=== PATIENT | female | born 1940 | race Caucasian/White ===

== ENCOUNTER → 2017-01-02 | Outpatient (CLI) | payer MEDICARE, BC ==
--- NOTE | 2017-01-02 16:41 | MR ---
EXAMINATION TYPE: MR lumbar spine wo con DATE OF EXAM: 01/02/2017 COMPARISON: NONE HISTORY: lLow back pain CONTRAST: 0 mL intravenous Gadavist. TECHNIQUE: Multiplanar, multisequence images of the lumbar spine were acquired. FINDINGS: L5-S1: There is a left paracentral disc herniation with moderate anterior thecal sac compression. No spinal canal stenosis present. Facet hypertrophy and ligamentum flavum laxity is present. Foramen are patent. L4-L5: There is a grade 1 spondylolisthesis with L4 anterior to L5. Disc uncovering is present with m oderate anterior thecal sac compression. Facet hypertrophy with posterior lateral thecal sac compress ion is present. This is contributing to very severe spinal canal. L3-L4: Broad-based disc bulge is present with anterior thecal sac contact. Facet hypertrophy is poste rior lateral thecal sac compression. No spinal canal stenosis is present. Neural foramen are patent. L2-L3: Disc bulge has mild anterior thecal sac contact. No AP spinal canal stenosis present. Facet hy pertrophy with posterior lateral thecal sac compression is present. L1-L2: Minimal disc bulge is present with anterior thecal sac contact. No spinal canal stenosis or ne ural foraminal stenosis present. Mild facet hypertrophy is present with mild right posterior lateral thecal sac compression. T12-L1: Right paracentral disc bulge has moderate anterior thecal sac compression. No cord contact is evident. No spinal canal stenosis or neural foraminal stenosis IMPRESSION: 1. Severe spinal canal stenosis L4-5 secondary to disc bulge and marked facet hypertrophy with ligame ntum flavum laxity. 2. Moderate size right paracentral subligamentous disc herniation T12-L1 without cord contact. 3. Left paracentral disc herniation L5-S1 with moderate anterior thecal sac compression.
== END | disposition home or self-care (01) ==
LOC: RADMRIMAIN 12:06
PROVIDERS: ATTEND Orthopaedic Surgery Orthopaedic Surgery of the Spine
DX: M48.06 Spinal stenosis, lumbar region (principal); M51.26 Other intervertebral disc displacement, lumbar region; M51.25 Other intervertebral disc displacement, thoracolumbar region; M51.27 Other intervertebral disc displacement, lumbosacral region
CPT/HCPCS: 72148

== ENCOUNTER → 2020-07-28 | Outpatient (CLI) | payer MEDICARE, BC ==
--- NOTE | 2020-07-28 13:14 | XR ---
Left shoulder HISTORY: Pain 2 views of left shoulder Distal acromion is downturned. There is arthropathy change at the acromioclavicular joint. Bone rn examiner alization is mildly reduced. Alignment is maintained, the glenohumeral joint is not seen on profile. Left lung apex as visualized is normal. Aorta is dense. There is a spinal curvature in the thoracic s pine, thoracic spondylosis. IMPRESSION: Correlate for impingement. Osteopenia. Spinal curvature. Degenerative disc disease.
== END | disposition home or self-care (01) ==
LOC: RADXRMAIN 11:43
PROVIDERS: ATTEND Internal Medicine
DX: M85.812 Other specified disorders of bone density and structure, left shoulder (principal); M43.8X4 Other specified deforming dorsopathies, thoracic region; M51.34 Other intervertebral disc degeneration, thoracic region

== ENCOUNTER → 2021-03-17 | Outpatient (CLI) | payer MEDICARE, BC ==
--- NOTE | 2021-03-18 08:49 | BD ---
EXAMINATION TYPE: Axial Bone Density DATE OF EXAM: 03/17/2021 COMPARISON: NONE CLINICAL HISTORY: Height: 5 FT 2 IN Weight: 189 FRAX RISK QUESTIONS: Alcohol (3 or more units per day): NO Family History (Parent hip fracture): YES Glucocorticoids (More than 3mos): NO (Ex: prednisone, prednisolone, methylprednisolone, dexamethasone, and hydrocortisone). History of Fracture in Adulthood: YES Secondary Osteoporosis: 1. Type 1 Diabetes: NO 2. Hyperthyroidism: NO 3. Menopause before 45: NO 4. Malnutrition: NO 5. Chronic liver disease: NO Rheumatoid Arthritis: NO Current Tobacco Use: NO RISK FACTORS HISTORY OF: Surgery to Spine/Hip(right/left)/Wrist (right/left): NO Family History of Osteoporosis: NO Active: YES Diet low in dairy products/other sources of calcium: NO Postmenopausal woman: YES Take estrogen and/or progesterone medications: NO Lost more than 2 inches in height since high school: YES Frequent falls: UNSTEADY Poor Health: GOOD Hyperparathyroidism: NO Adrenal Insufficiency: NO MEDICATIONS: Thyroid Medications: YES Which medication: SYNTHROID How Long: APPROX 10-20 YEARS Additional Medications: Additional History: SYNTHROID, ASPIRIN, METOPROLOL, LISINOPRIL, ZINC, LIPITOR, VIT D3 EXAM MEASUREMENTS: Bone mineral densitometry was performed using the [employer] System. Bone mineral density as measured about the Lumbar spine is: ----- L1-L4(G/cm2): 1.229 T Score Values are as follows: ----- L2: 0.2 ----- L3: 0.9 ----- L4: 1.1 ----- L1-L4: 0.4 BASELINE Bone mineral density about the R hip (g/cm2): 0.809 Bone mineral density about the L hip (g/cm2): 0.770 T Score values are as follows: -----R Neck: -1.6 -----L Neck: -1.9 -----R Total: -2.1 -----L Total: -1.7 BASELINE IMPRESSION: Osteopenia NOTE: T-SCORE=SD OF THE YOUNG ADULT MEAN.
== END | disposition home or self-care (01) ==
LOC: RADBDWWP 14:19
PROVIDERS: ATTEND Internal Medicine
DX: M85.89 Other specified disorders of bone density and structure, multiple sites (principal); Z78.0 Asymptomatic menopausal state
CPT/HCPCS: 77080

== ENCOUNTER 2021-07-04 13:52 | Emergency (ER) | payer MEDICARE, BC ==
[2021-07-04 13:59] VITALS: BP 170/73; PULSE 77; RESP 20; TEMP 97.1
--- NOTE | 2021-07-04 15:44 | CT ---
EXAMINATION TYPE: CT brain cammie loredo con DATE OF EXAM: 07/04/2021 COMPARISON: None available HISTORY: fall x [address] DLP: 1366.6 mGycm Automated exposure control for dose reduction was used. TECHNIQUE: CT scan of the head and cervical spine are performed without contrast. FINDINGS: Brain: Brain volume loss changes, likely age-related. Questionable 8mm anterior sellar cyst without extra-se llar extension. Suspected mild bilateral cerebral white matter chronic microvascular ischemic changes . No acute intracranial hemorrhage or gross acute cortical infarct. No midline shift or herniation. Unremarkable basal cisterns and CP angles. No gross orbital abnormali ty. Left frontal scalp swelling, please correlate clinically. Clear visualized paranasal sinuses. Opa cified right inferior mastoid air cells. No definite acute calvarial bone fracture identified. Cervical spine: Osteopenia. Good vertebral alignment without significant anterolisthesis or retrolisthesis. No defini te vertebral body collapse or acute displaced fracture. Unremarkable atlantoaxial and atlantooccipita l relations. No facet dislocation or significant subluxation. Degenerative changes of the cervical spine most evident at C5-6 level. Right C4-5 and severe bilatera l C5-6 neural foraminal stenosis. Subtle soft tissue calcification is seen in the right T1-2 neurofor amen, further MRI assessment can be considered. Spinal canal stenosis is seen at C3-4 and C5-6 levels . Scattered arterial atherosclerotic calcifications. IMPRESSION: 1. No acute traumatic bony injury of the cervical spine. 2. No acute intracranial post traumatic sequela or acute calvarial bone fracture. 3. Left frontal scalp swelling, please correlate clinically. Other Incidental findings as described danna smith.
--- NOTE | 2021-07-04 16:06 | ED ---
Fall HPI - General Chief Complaint: Fall Stated Complaint: Fell a week ago, Head Injury, on blood thinner Time Seen by Provider: 07/04/21 15:19 Source: patient Mode of arrival: ambulatory - History of Present Illness Initial Comments: Patient is an 80-year-old female who presents to the emergency department with a chief complaint of a bump on her head. Patient reports she fell one week ago due to tripping over her cat. She states that she lost consciousness for about a minute. She is not on blood thinners. Patient was not evaluated at the time as she states she did not have concern after the fall. She states she had a bump on the left side of her head and some left eye swelling but no pain or headache. No visual symptoms. Patient expressed that she was concerned today due to the bump on her head not healing after one week and she reached out to her primary care provider who sent her here. Patient has no other concerns at this time including fever, chills, headache, shortness of breath, cough, chest pain, abdominal pain, nausea, vomiting, and burning with urination. - Related Data Allergies Allergy/AdvReac Type Severity Reaction Status Date / Time No Known Allergies Allergy Verified 07/04/21 13:59 Review of Systems ROS Statement: Those systems with pertinent positive or pertinent negative responses have been documented in the HPI. ROS Other: All systems not noted in ROS Statement are negative. Past Medical History Past Medical History: Coronary Artery Disease (CAD), Hypertension History of Any Multi-Drug Resistant Organisms: None Reported Past Surgical History: No Surgical Hx Reported Past Psychological History: No Psychological Hx Reported Smoking Status: Never smoker Past Alcohol Use History: None Reported Past Drug Use History: None Reported General Exam Limitations: no limitations General appearance: alert, in no apparent distress Head exam: Present: normocephalic, normal inspection, other (swelling anterior to left [facility], mild tenderness with palpation, overlying healing ecchymosis, no overlying laceration or abrasion ) Eye exam: Present: normal appearance, PERRL, EOMI (No pain ), other (Healing ecchymosis around left eye). Absent: conjunctival injection, periorbital swelling, periorbital tenderness Neck exam: Present: normal inspection. Absent: tenderness Respiratory exam: Present: normal lung sounds bilaterally. Absent: respiratory distress, wheezes, rales, rhonchi, stridor Cardiovascular Exam: Present: regular rate, normal rhythm, normal heart sounds. Absent: systolic murmur, diastolic murmur, rubs, gallop, clicks GI/Abdominal exam: Present: soft, normal bowel sounds. Absent: distended, tenderness, guarding, rebound, rigid Neurological exam: Present: alert, oriented X3, CN II-XII intact Psychiatric exam: Present: normal affect, normal mood Skin exam: Present: warm, dry, intact, normal color. Absent: rash Course Vital Signs 07/04/21 13:55 Temperature 97.1 F L Pulse Rate 77 Respiratory 20 Rate Blood Pressure 170/73 O2 Sat by Pulse 96 Oximetry Medical Decision Making - Medical Decision Making This is an 80-year-old female who presents with a bump on her head after falling 1 week ago. Thorough history and examination were performed. CT of the brain and C-spine without contrast is unremarkable. CT of the facial bones without contrast reveals no acute facial bone fracture with left frontal scalp and left periorbital soft tissue swelling. Patient had discussed that she likely has a hematoma that'll heal with time. She is encouraged to use heating packs as needed for swelling and overlying tenderness. She is instructed to follow-up with her primary care provider in one to 2 days. Return parameters discussed. Patient verbalizes understanding and is agreeable to plan. Dr. Cordero is my attending. Disposition Clinical Impression: Fall Disposition: HOME SELF-CARE Condition: Good Instructions (If sedation given, give patient instructions): Fall Prevention for Older Adults (ED) Additional Instructions: Please follow up with your primary care provider in 1 to 2 days. Return to emergency department if you experience new, concerning, or worsening symptoms. Is patient prescribed a controlled substance at d/c from ED?: No Referrals: Liam Benitez MD [Primary Care Provider] - 1-2 days Time of Disposition: 16:05
--- NOTE | 2021-07-04 16:19 | CT ---
EXAMINATION TYPE: CT facial bones wo con DATE OF EXAM: 07/04/2021 COMPARISON: Unavailable HISTORY: Fall x1 week ago. CT DLP: 519.3 mGycm Automated exposure control for dose reduction was used. TECHNIQUE: CT scan of the sinuses is performed without contrast, axial images are obtained, coronal r eformatted images are also reviewed. FINDINGS: Artifacts from dental work. Osteopenia. No definite acute facial bone fracture identified. Deviated b stephany nasal septum convex to the left side. Clear paranasal sinuses. Left frontal scalp and left perior bital soft tissue swelling. Opacified right inferior mastoid air cells. Unremarkable orbits. IMPRESSION: No definite acute facial bone fracture identified. Incidental findings as described above.
== END 2021-07-04 16:31 | disposition home or self-care (01) ==
LOC: EC 13:52
DX: S00.83XA Contusion of other part of head, initial encounter (principal); I10 Essential (primary) hypertension; I25.10 Atherosclerotic heart disease of native coronary artery without angina pectoris; W01.0XXA Fall on same level from slipping, tripping and stumbling without subsequent striking against object, initial encounter
CPT/HCPCS: 70450; 70486; 72125; 99284

== ENCOUNTER → 2021-08-16 | Outpatient (CLI) | payer MEDICARE, BC ==
--- NOTE | 2021-08-16 14:25 | XR ---
EXAM TYPE: LUMBAR SPINE X RAY SERIES COMPARISON: NONE HISTORY: Pain TECHNIQUE: 4 views are submitted. FINDINGS: Diffuse osteopenia with multilevel hypertrophic and degenerative change. There is facet arthropathy w ith grade 1 anterolisthesis L4 on L5. Foraminal encroachment lower lumbar spine. Vascular calcificati ons are noted. IMPRESSION: 1. Multilevel degenerative disc disease and facet arthropathy with grade 1 anterolisthesis L4 on L5.
--- NOTE | 2021-08-16 14:28 | XR ---
EXAMINATION TYPE: XR knee complete bilateral DATE OF EXAM: 08/16/2021 CLINICAL HISTORY: Pain TECHNIQUE: Three views of the bilateral knee are obtained. COMPARISON: None. FINDINGS: Diffuse osteopenia. There is no acute fracture/dislocation evident in bilateral knee. Severe narrowing of the medial compartment of the left knee with hypertrophic spurring. Severe narrow ing of the patellofemoral joint with hypertrophic spurring. There is no acute fracture/dislocation evident in bilateral knee. Severe narrowing of the lateral com partment of the right knee with hypertrophic spurring. Severe narrowing of the patellofemoral joint w ith hypertrophic spurring. IMPRESSION: 1. Bilateral severe arthritic changes with diffuse osteopenia
--- NOTE | 2021-08-16 14:30 | XR ---
EXAMINATION TYPE: XR Hip Bilateral and AP pelvis DATE OF EXAM: 08/16/2021 COMPARISON: NONE HISTORY: Pain TECHNIQUE: A single AP view of the pelvis is obtained. Two views of the bilateral hip are obtained. FINDINGS: Degenerative change lower lumbar spine. Nonspecific calcifications in the pelvis possibly r elated to uterine fibroids. Bilateral hip arthropathy. Diffuse osteopenia. SI joints symmetric. Vascu lar calcifications noted. Bilateral SI joint arthropathy. IMPRESSION: 1. Bilateral hip arthropathy correlate for femoral acetabular impingement. 2. SI joint arthropathy.
== END | disposition home or self-care (01) ==
LOC: RADXRMAIN 13:36
PROVIDERS: ATTEND Internal Medicine
DX: M43.16 Spondylolisthesis, lumbar region (principal); M47.816 Spondylosis without myelopathy or radiculopathy, lumbar region; M51.36 Other intervertebral disc degeneration, lumbar region; M85.89 Other specified disorders of bone density and structure, multiple sites; M17.0 Bilateral primary osteoarthritis of knee; M46.1 Sacroiliitis, not elsewhere classified
CPT/HCPCS: 72100; 73521